=== PATIENT | male | born 2000 | race Caucasian/White ===

== ENCOUNTER 2018-11-04 11:59 | Emergency (ER) | payer BC ==
--- OUTSIDE RECORDS SUMMARY | 2018-11-04 12:02 | XMS REPORT ---
:2000 Author Organization eClinicalWorks Care Team Providers Name Role Phone Tangela Grimes Provider Role Unavailable Allergies, Adverse Reactions, Alerts Substance Reaction Event Type N.K.D.A. 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
[2018-11-04] MEDS ORDERED: NA CHLORIDE 0.9% 1,000 ML ONE (13:02)
[2018-11-04 13:14] LABS: Absolute Lymphocytes (CBC) 0.9 K/uL (0.7-4.9); Absolute Monocytes 0.4 K/uL (0.1-1.3); Absolute Neutrophil 7.8 K/uL (1.8-8.0); Basophils % 0.3 % (0-1.3); Eosinophils % 0.7 % (0-4.4); Hematocrit 42.4 % (39.6-49.0); Lymphocytes % 9.8 % (15.3-44.8); MCH 29.8 pg (27.0-35.0); MCV 84.8 fL (80-100); MPV 7.9 fL (7.6-11.3); Monocytes % 4.5 % (3.3-12.3)
[2018-11-04 13:30] LABS: ALT/SGPT 17 U/L (12-78); AST/SGOT 14 U/L (15-37); Albumin 4.4 g/dL (3.4-5.0); Alkaline Phosphatase 94 U/L (45-117); BUN Blood Urea Nitrogen 17 mg/dL (7-18); Bicarbonate 28 mmol/L (21-32); Bilirubin Direct 0.1 mg/dL (0-0.2); Bilirubin Total 0.5 mg/dL (0.2-1.0); Glucose Level 86 mg/dL (74-106); Lipase 58 U/L (73-393); Potassium 3.9 mmol/L (3.5-5.1); Protein, Total 8.1 g/dL (6.4-8.2); Sodium Level 140 mmol/L (136-145)
[2018-11-04] MEDS ORDERED: KETOROLAC 30 MG/ML INJ ONE (14:42)
--- NOTE | 2018-11-04 14:52 | RAD REPORT ---
EXAM DESCRIPTION: CTAbdomen Pelvis W Contrast - 11/04/2018 2:35 pm CLINICAL HISTORY: Abdominal pain. iv contrast only;Abd pain COMPARISON: No comparisons TECHNIQUE: Biphasic CT imaging of the abdomen and pelvis was performed with 100 ml non-ionic IV cont rast. All CT scans are performed using dose optimization technique as appropriate and may include automated exposure control or mA/KV adjustment according to patient size. FINDINGS: The lung bases are clear. The liver, spleen, pancreas, adrenal glands and kidneys are within normal limits. No bowel obstruction, free air, free fluid or abscess. The appendix is normal. No evidence of signi ficant lymphadenopathy. No suspicious bony findings. IMPRESSION: No acute intra-abdominal or pelvic finding.
--- NOTE | 2018-11-04 14:58 | ER ---
Nurse's Notes [facility] Name: Ravinder Heredia Age: 18 yrs Sex: Male : 2000 Arrival Date: 11/04/2018 Time: 12:01 Bed 17 Private MD: Diagnosis: Generalized abdominal pain Presentation: 11/04 12:12 Presenting complaint: Patient states: i was at work and my stomach (epigastric area, aj1 06/19) reports N/V, vomited x1; ; denies diarrhea and constipation; denies fever and chills; i had nose bleed 5-6 days ago;. Transition of care: patient was not received from another setting of care. Onset of symptoms was November 04, 2018. Risk Assessment: Do you want to hurt yourself or someone else? Patient reports no desire to harm self or others. Initial Sepsis Screen: Does the patient meet any 2 criteria? No. Patient's initial sepsis screen is negative. Does the patient have a suspected source of infection? No. Patient's initial sepsis screen is negative. Care prior to arrival: None. 12:12 Method Of Arrival: Ambulatory aj1 12:12 Acuity: CARLOS 3 hj Triage Assessment: 12:15 General: Appears in no apparent distress. uncomfortable, Behavior is calm, cooperative, hj appropriate for age. Pain: Complains of pain in epigastric area. GI: Reports upper abdominal pain. Historical: - Allergies: 12:15 No Known Allergies; hj - Home Meds: 12:15 None [Active]; hj - PMHx: 12:15 None; hj - PSHx: 12:15 None; hj - Immunization history:: Adult Immunizations up to date. - Social history:: Smoking status: Patient uses tobacco products, Patient/guardian denies using alcohol. - Ebola Screening: : Patient negative for fever greater than or equal to 101.5 degrees Fahrenheit, and additional compatible Ebola Virus Disease symptoms Patient denies exposure to infectious person Patient denies travel to an Ebola-affected area in the 21 days before illness onset. Screenin:15 Abuse screen: Denies threats or abuse. Denies injuries from another. Nutritional hj screening: No deficits noted. Tuberculosis screening: No symptoms or risk factors identified. Fall Risk None identified. Assessment: 12:15 GI: Bowel sounds present X 4 quads. Abd is soft and non tender. hj 14:49 Reassessment: ALL CURRENT ORDERS COMPLETED, RESULTS PENDING FOR DISPO. bp 15:17 Reassessment: PT D/C HOME AMBULATORY WITH FAMILY, DX WITH GEN ABDOMINAL PAIN. bp Vital Signs: 12:16 BP 119 / 85; Pulse 80; Resp 18; Temp 98.0(O); Pulse Ox 100% on R/A; Weight 90.72 kg; hj Height 6 ft. 3 in. (190.50 cm); Pain 8/10; 14:23 BP 128 / 58; Pulse 80; Resp 17; Pulse Ox 100% on R/A; mh5 15:18 BP 113 / 57; Pulse 75; Resp 16; Pulse Ox 100% ; bp 12:16 Body Mass Index 25.00 (90.72 kg, 190.50 cm) ED Course: 12:01 Patient arrived in ED. mr 12:14 Triage completed. aj1 12:15 Arm band placed on right wrist. hj 12:15 Patient has correct armband on for positive identification. Placed in gown. Bed in low hj position. Call light in reach. Side rails up X 1. 12:43 Nanette Marti FNP-C is [facility]. kb 12:43 Ayden Chino MD is Attending Physician. kb 12:51 Joshua Hidalgo, LANDON is Primary Nurse. bp 13:09 Inserted saline lock: 18 gauge in right antecubital area, using aseptic technique. bp Blood collected. 14:35 CT Abd/Pelvis - W/Contrast In Process Unspecified. EDMS 14:43 Urine collected: clean catch specimen, clear. mh5 15:18 No provider procedures requiring assistance completed. IV discontinued, intact, bp bleeding controlled, No redness/swelling at site. Pressure dressing applied. Administered Medications: 13:00 Drug: NS 0.9% 1000 ml Route: IV; Rate: 1000 ml; Site: right antecubital; bp 14:00 Follow up: IV Status: Completed infusion; IV Intake: 1000ml bp 14:45 Drug: TORadol 30 mg Route: IVP; Site: right antecubital; bp 15:16 Follow up: Response: No adverse reaction; Pain is decreased bp Intake: 14:00 IV: 1000ml; Total: 1000ml. bp Outcome: 14:58 Discharge ordered by . kb 15:18 Discharged to home ambulatory, with family. bp 15:18 Condition: stable 15:18 Discharge instructions given to patient, Instructed on discharge instructions, follow up and referral plans. Demonstrated understanding of instructions, follow-up care, medications, Prescriptions given X 2. 15:19 Patient left the ED. bp Signatures: Dispatcher [employer] EDMS Nanette Marti, CAROLYNN MOTTA-Yolie Reinoso RN RN aj1 Yolande Stephens mr Cj Miller RN RN Dorie Grace [facility] Joshua Hidalgo RN RN bp Corrections: (The following items were deleted from the chart) 12:16 12:12 Presenting complaint: Patient states: i was at work and my stomach (epigastric hj area, 06/19) denies N/V; denies diarrhea and constipation; denies fever and chills; i had nose bleed 5-6 days ago; aj1 12:18 12:12 Acuity: CARLOS [facility] 12:18 12:16 Pulse 80bpm; Resp 18bpm; Pulse Ox 100% RA; Temp 98.0F Oral; 90.72 kg; Height 6 hj ft. 3 in.; BMI: 25.0; Pain 06/19; hj
--- NOTE | 2018-11-04 14:59 | EDPHYS ---
Physician Documentation [facility] Name: Ravinder Heredia Age: 18 yrs Sex: Male : 2000 Arrival Date: 11/04/2018 Time: 12:01 Bed 17 Private MD: ED Physician Ayden Chino HPI: 11/04 13:53 This 18 yrs old Male presents to ER via Ambulatory with complaints of Nose kb Bleed, Abdominal Pain, Headache. 13:53 The patient presents with abdominal pain in the upper abdomen. Onset: The kb symptoms/episode began/occurred this morning. The symptoms do not radiate. Associated signs and symptoms: Pertinent positives: nausea and vomiting, Pertinent negatives: anorexia, blood in stools, chest pain, constipation, diarrhea, dysuria, fever, headache, hematuria, palpitations, shortness of breath, testicular pain, vomiting blood. The symptoms are described as constant. Modifying factors: The symptoms are alleviated by nothing, the symptoms are aggravated by nothing. Severity of pain: At its worst the pain was mild moderate in the emergency department the pain is unchanged. The patient has not experienced similar symptoms in the past. The patient has not recently seen a physician. Pt reports abdominal pain, vomiting and lightheadedness that started this morning. States he has had nosebleeds daily for 5-6 days as well. No bleeding at this time. Historical: - Allergies: 12:15 No Known Allergies; hj - Home Meds: 12:15 None [Active]; hj - PMHx: 12:15 None; hj - PSHx: 12:15 None; hj - Immunization history:: Adult Immunizations up to date. - Social history:: Smoking status: Patient uses tobacco products, Patient/guardian denies using alcohol. - Ebola Screening: : Patient negative for fever greater than or equal to 101.5 degrees Fahrenheit, and additional compatible Ebola Virus Disease symptoms Patient denies exposure to infectious person Patient denies travel to an Ebola-affected area in the 21 days before illness onset. ROS: 14:32 Constitutional: Negative for fever, chills, and weight loss, Neck: Negative for injury, kb pain, and swelling, Cardiovascular: Negative for chest pain, palpitations, and edema, Respiratory: Negative for shortness of breath, cough, wheezing, and pleuritic chest pain, Back: Negative for injury and pain, : Negative for injury, bleeding, discharge, and swelling, MS/Extremity: Negative for injury and deformity, Skin: Negative for injury, rash, and discoloration. 14:32 ENT: Positive for nose bleed. 14:32 Abdomen/GI: Positive for abdominal pain, nausea and vomiting, Negative for diarrhea, constipation, abdominal cramps, abdominal distension, anorexia. 14:32 Neuro: Positive for headache. Exam: 14:32 Constitutional: This is a well developed, well nourished patient who is awake, alert, kb and in no acute distress. Head/Face: Normocephalic, atraumatic. ENT: Nares patent. No nasal discharge, no septal abnormalities noted. Tympanic membranes are normal and external auditory canals are clear. Oropharynx with no redness, swelling, or masses, exudates, or evidence of obstruction, uvula midline. Mucous membranes moist. Neck: Trachea midline, no thyromegaly or masses palpated, and no cervical lymphadenopathy. Supple, full range of motion without nuchal rigidity, or vertebral point tenderness. No Meningismus. Chest/axilla: Normal chest wall appearance and motion. Nontender with no deformity. No lesions are appreciated. Cardiovascular: Regular rate and rhythm with a normal S1 and S2. No gallops, murmurs, or rubs. Normal PMI, no JVD. No pulse deficits. Respiratory: Lungs have equal breath sounds bilaterally, clear to auscultation and percussion. No rales, rhonchi or wheezes noted. No increased work of breathing, no retractions or nasal flaring. Back: No spinal tenderness. No costovertebral tenderness. Full range of motion. Skin: Warm, dry with normal turgor. Normal color with no rashes, no lesions, and no evidence of cellulitis. MS/ Extremity: Pulses equal, no cyanosis. Neurovascular intact. Full, normal range of motion. Neuro: Awake and alert, GCS 15, oriented to person, place, time, and situation. Cranial nerves II-XII grossly intact. Motor strength 5/5 in all extremities. Sensory grossly intact. Cerebellar exam normal. Normal gait. 14:32 Abdomen/GI: Inspection: abdomen appears normal, Bowel sounds: normal, in all quadrants, Palpation: soft, in all quadrants, mild abdominal tenderness, in the right upper quadrant, left upper quadrant and left lower quadrant. Vital Signs: 12:16 BP 119 / 85; Pulse 80; Resp 18; Temp 98.0(O); Pulse Ox 100% on R/A; Weight 90.72 kg; hj Height 6 ft. 3 in. (190.50 cm); Pain 8/10; 14:23 BP 128 / 58; Pulse 80; Resp 17; Pulse Ox 100% on R/A; mh5 15:18 BP 113 / 57; Pulse 75; Resp 16; Pulse Ox 100% ; bp 12:16 Body Mass Index 25.00 (90.72 kg, 190.50 cm) hj MDM: 12:43 Patient medically screened. kb 14:33 Data reviewed: vital signs, nurses notes. Data interpreted: Pulse oximetry: on room air kb is 100 %. Interpretation: normal. 14:53 Counseling: I had a detailed discussion with the patient and/or guardian regarding: the kb historical points, exam findings, and any diagnostic results supporting the discharge/admit diagnosis, lab results, radiology results, the need for outpatient follow up, a family practitioner, to return to the emergency department if symptoms worsen or persist or if there are any questions or concerns that arise at home. 11/04 12:49 Order name: Basic Metabolic Panel; Complete Time: 13:31 kb 11/04 12:49 Order name: CBC with Diff; Complete Time: 13:17 kb 11/04 12:49 Order name: Hepatic Function; Complete Time: 13:31 kb 11/04 12:49 Order name: Lipase; Complete Time: 13:31 kb 11/04 14:17 Order name: CT Abd/Pelvis - W/Contrast; Complete Time: 14:53 kb 11/04 15:09 Order name: Urine Dipstick--Ancillary (enter results); Complete Time: 15:16 bd 11/04 12:49 Order name: IV Saline Lock; Complete Time: 13:08 kb 11/04 12:49 Order name: Labs collected and sent; Complete Time: 13:08 kb 11/04 12:49 Order name: Orthostatics; Complete Time: 13:47 kb 11/04 13:43 Order name: Urine Dipstick-Ancillary (obtain specimen); Complete Time: 14:44 kb Administered Medications: 13:00 Drug: NS 0.9% 1000 ml Route: IV; Rate: 1000 ml; Site: right antecubital; bp 14:00 Follow up: IV Status: Completed infusion; IV Intake: 1000ml bp 14:45 Drug: TORadol 30 mg Route: IVP; Site: right antecubital; bp 15:16 Follow up: Response: No adverse reaction; Pain is decreased bp Disposition: 16:19 Co-signature as Attending Physician, Ayden Chino MD I agree with the assessment and kdr plan of care. Disposition: 11/04/18 14:58 Discharged to Home. Impression: Generalized abdominal pain. - Condition is Stable. - Discharge Instructions: Abdominal Pain, Adult, [id number]. - Prescriptions for Bentyl 20 mg Oral Tablet - take 1 tablet by ORAL route every 6 hours As needed; 20 tablet. Zofran 4 mg Oral Tablet - take 1 tablet by ORAL route every 6 hours As needed; 20 tablet. - Medication Reconciliation Form, Thank You Letter, Antibiotic Education, Prescription Opioid Use form. - Follow up: Emergency Department; When: As needed; Reason: Worsening of condition. Follow up: Private Physician; When: 2 - 3 days; Reason: Recheck today's complaints, Continuance of care, Re-evaluation by your physician. Signatures: Dispatcher [employer] EDMS Nanette Marti, FIRER DIESEL LOCOMOTIVE-C FIRER DIESEL LOCOMOTIVE-Ckb Ayden Chino MD MD [facility] Cj Miller, RN RN Joshua Hidalgo, LANDON RN bp Corrections: (The following items were deleted from the chart) 15:19 14:58 11/04/2018 14:58 Discharged to Home. Impression: Generalized abdominal pain. bp Condition is Stable. Forms are Medication Reconciliation Form, Thank You Letter, Antibiotic Education, Prescription Opioid Use. Follow up: Emergency Department; When: As needed; Reason: Worsening of condition. Follow up: Private Physician; When: 2 - 3 days; Reason: Recheck today's complaints, Continuance of care, Re-evaluation by your physician. kb
[2018-11-04 15:16] LABS: Urine Blood NEGATIVE (NEG); Urine Glucose NEGATIVE (NEG); Urine Protein NEGATIVE (NEG); Urine pH 6.5 (5.0-7.0)
== END 2018-11-04 15:19 | disposition home or self-care (01) ==
LOC: ER 11:59
DX: R10.84 Generalized abdominal pain (principal); Z72.0 Tobacco use
CPT/HCPCS: 36415; 74177; 80048; 80076; 81003; 83690; 85025; J7030; Q9967

== ENCOUNTER 2024-07-10 15:44 | Emergency (ER) | payer BC, OTHER ==
[2024-07-10] MEDS ORDERED: HYDROCODONE/APAP 7.5/325 MG TAB ONE (16:09)
--- NOTE | 2024-07-10 16:57 | RAD REPORT ---
EXAM DESCRIPTION: RAD - Knee Left 3 View - 07/10/2024 4:36 pm CLINICAL HISTORY: Left knee pain FINDINGS: No fracture or dislocation is seen. Small joint effusion
--- NOTE | 2024-07-10 17:01 | EDPHYS ---
Physician Documentation [facility] Name: Ravinder Heredia Age: 24 yrs Sex: Male : 2000 Arrival Date: 07/10/2024 Time: 15:44 Bed 12 Private MD: ED Physician Christos Michele HPI: 07/10 15:56 This 24 yrs old Male presents to ER via Unassigned with complaints of Knee Injury. kb 15:56 Pt is a 24 year old male who presents for left knee pain after slip and fall in the restroom last night. Pt is ambulatory. Denies any other injuries. . Historical: - Allergies: 16:06 No Known Allergies; ap3 - Home Meds: 16:06 None [Active]; ap3 - PMHx: 16:06 None; ap3 - Immunization history:: Client reports having NOT received the Covid vaccine. Last tetanus immunization: unknown, Flu vaccine is not up to date. - Social history:: Smoking status: unknown. ROS: 15:55 Constitutional: As per HPI kb Exam: 15:55 Constitutional: This is a well developed, well nourished patient who is awake, alert, kb and in no acute distress. Head/Face: Normocephalic, atraumatic. ENT: Moist Mucous membranes Cardiovascular: Regular rate Respiratory: Respirations even and unlabored. No increased work of breathing. Talking in full sentences Abdomen/GI: Soft, non-tender. No distention Skin: Warm, dry with normal turgor. Normal color. Neuro: Awake and alert, GCS 15, oriented to person, place, time, and situation. Moves all extremities. Normal gait. 15:56 Musculoskeletal/extremity: Extremities: grossly normal except: noted in the medial kb aspect of left knee: pain, swelling, tenderness, ROM: intact in all extremities, Circulation is intact in all extremities. Sensation intact. Weight bearing: able to fully bear weight, Vital Signs: 16:05 BP 155 / 90; Pulse 84; Resp 17; Temp 98.7; Pulse Ox 100% ; Weight 111.13 kg; Height 6 ap3 ft. 2 in. ; Pain 8/10; 16:05 Body Mass Index 31.46 (111.13 kg, 187.96 cm) ap3 16:05 Pain Scale: Adult ap3 MDM: 15:51 Patient medically screened. kb 15:55 Data reviewed: vital signs, nurses notes. kb 17:00 Differential diagnosis: strain, sprain, fracture. Counseling: I had a detailed kb discussion with the patient and/or guardian regarding the historical points, exam findings, and any diagnostic results supporting the discharge/admit diagnosis, radiology results, the need for outpatient follow up, a family practitioner, to return to the emergency department if symptoms worsen or persist or if there are any questions or concerns that arise at home. 07/10 15:58 Order name: Knee Left 3 View XRAY; Complete Time: 17:00 kb 07/10 17:00 Order name: Garret Wrap; Complete Time: 17:13 kb Administered Medications: 16:12 Not Given (Patient Refused): hydrocodone-acetaminophen(7.5 mg-325 mg) 1 tabs PO once ap3 Disposition: 19:11 Co-signature as Attending Physician, Christos Michele MD I reviewed the patient's care rt provided by the Advanced Practice Provider and agree with the diagnosis and treatment plan. Disposition Summary: 07/10/24 17:00 Discharge Ordered Notes: Location: Home kb Condition: Stable kb Diagnosis - Pain in left knee kb Followup: kb - With: Private Physician - When: 2 - 3 days - Reason: Recheck today's complaints, Continuance of care, Re-evaluation by your physician Followup: kb - With: Emergency Department - When: As needed - Reason: Worsening of condition Discharge Instructions: - Discharge Summary Sheet kb - Musculoskeletal Pain kb - Knee Sprain, Adult, [id number] kb - Acute Knee Pain, Adult, [id number] kb Forms: - Medication Reconciliation Form kb - Antibiotic Education kb - Prescription Opioid Use kb - Patient Portal Instructions kb - Leadership Thank You Letter kb Prescriptions: - Ibuprofen 800 mg Oral Tablet - take 1 tablet ORAL route every 8 hours As needed take with food; 30 tablet; kb Refills: 0, Product Selection Permitted Signatures: Dispatcher [employer] Nanette Lim FNP-C FNP-Ckb Prokisch, Amanda RN RN ap3 Christos Michele MD MD rt Corrections: (The following items were deleted from the chart) 15:58 15:58 Knee Left 3 View+RAD.RAD.BRZ ordered. EDMS EDMS
--- NOTE | 2024-07-10 17:01 | ER ---
Nurse's Notes [facility] Name: Ravinder Heredia Age: 24 yrs Sex: Male : 2000 Arrival Date: 07/10/2024 Time: 15:44 Bed 12 Private MD: Diagnosis: Pain in left knee Presentation: 07/10 16:05 Chief complaint: Patient states: he slipped and fell last night and injured his left ap3 knee. patient complains of pain to his left knee of which he rates an 8/10 on the pain scale. Coronavirus screen: At this time, the client does not indicate any symptoms associated with coronavirus-19. Ebola Screen: No symptoms or risks identified at this time. Initial Sepsis Screen: Does the patient meet any 2 criteria? No. Patient's initial sepsis screen is negative. Does the patient have a suspected source of infection? No. Patient's initial sepsis screen is negative. Risk Assessment: Do you want to hurt yourself or someone else? Patient reports no desire to harm self or others. Onset of symptoms was July 09, 2024. 16:05 Method Of Arrival: Ambulatory ap3 16:05 Acuity: CARLOS 4 ap3 Triage Assessment: 16:07 General: Appears in no apparent distress. Behavior is calm, cooperative, appropriate ap3 for age. Pain: Complains of pain in left leg and medial aspect of left knee Pain currently is 8 out of 10 on a pain scale. Neuro: Level of Consciousness is awake, alert, obeys commands, Oriented to person, place, time, situation, Appropriate for age. Cardiovascular: Patient's skin is warm and dry. Respiratory: Airway is patent Respiratory effort is even, unlabored, Respiratory pattern is regular, symmetrical. Musculoskeletal: Reports pain in left leg and medial aspect of left knee. Historical: - Allergies: 16:06 No Known Allergies; ap3 - Home Meds: 16:06 None [Active]; ap3 - PMHx: 16:06 None; ap3 - Immunization history:: Client reports having NOT received the Covid vaccine. Last tetanus immunization: unknown, Flu vaccine is not up to date. - Social history:: Smoking status: unknown. Screenin:07 [facility] ED Fall Risk Assessment (Adult) History of falling in the last 3 months, ap3 including since admission Yes- single mechanical fall (1 pt) Confusion or Disorientation No (0 pts) Intoxicated or Sedated No (0 pts) Impaired Gait No (0 pts) Mobility Assist Device Used No (0 pt) Altered Elimination No (0 pt) Score/Fall Risk Level 0 - 2 = Low Risk Oriented to surroundings, Maintained a safe environment, Educated pt \T\ family on fall prevention, incl call for assistance when getting out of bed, Assessed \T\ reinforced patient's understanding of fall precautions, Hourly rounding (assess needs \T\ fall precautionary measures) done, Used ambulatory aids as needed (educated on \T\ assisted with), Used gait belt as appropriate. Abuse screen: Denies threats or abuse. Nutritional screening: No deficits noted. Tuberculosis screening: No symptoms or risk factors identified. Vital Signs: 16:05 BP 155 / 90; Pulse 84; Resp 17; Temp 98.7; Pulse Ox 100% ; Weight 111.13 kg; Height 6 ap3 ft. 2 in. ; Pain 8/10; 16:05 Body Mass Index 31.46 (111.13 kg, 187.96 cm) ap3 16:05 Pain Scale: Adult ap3 ED Course: 15:50 Patient arrived in ED. mg5 15:51 [facility]C [facility] kb 15:51 Christos Michele MD is Attending Physician. kb 16:06 Triage completed. ap3 16:08 Arm band placed on left wrist. ap3 16:38 Knee Left 3 View XRAY In Process Unspecified. EDMS Administered Medications: 16:12 Not Given (Patient Refused): hydrocodone-acetaminophen(7.5 mg-325 mg) 1 tabs PO once ap3 Outcome: 17:00 Discharge ordered by . kb 17:21 Patient left the ED. Signatures: Dispatcher [employer] EDMS Nanette Marti FNP-C FNP-Ckb Baxter, Heather, RN RN Brittney Fink RN RN ap3 Lyric Rock mg5
[2024-07-10 17:28] VITALS: BP 155/90; TEMP 98.7; O2SAT 100
== END 2024-07-10 17:21 | disposition home or self-care (01) ==
LOC: ER 15:44
DX: M25.562 Pain in left knee (principal)
CPT/HCPCS: 99281